=== PATIENT | male | born 1980 | race Caucasian/White ===

== ENCOUNTER 2017-01-23 16:05 | Emergency (ER) | payer OTHER ==
[2017-01-23 16:15] VITALS: BP 124/68; PULSE 61; TEMP 98.1; BMI 20.3
[2017-01-23] MEDS ORDERED: DIPHTH,PERTUSS(ACELL),TET 0.5 ML DISP.SYRIN IM ONE (16:15)
--- NOTE | 2017-01-23 16:15 | PDOC ---
Rapid Medical Evaluation Time Seen by Provider: 01/23/17 16:11 Medical Evaluation: 01/23/17 16:12 I have performed a brief in person evaluation of this patient. The patient presents with chief complaint of : laceration to the right knee at work cut with glass that was sticking out of the garbage bag Pertinent PE findings: right knee with linear laceration vertical across patella no active bleeding approximately 2cm. I have ordered the following: boostrix The patient will proceed to the ER for further evaluation.
--- NOTE | 2017-01-23 18:37 | PDOC ---
History of Present Illness - General Chief Complaint: Laceration Stated Complaint: LACERATION Time Seen by Provider: 01/23/17 16:11 History Source: Patient Exam Limitations: No Limitations - History of Present Illness Initial Comments: 01/23/17 18:28 CHIEF COMPLAINT: Laceration to the Right knee HISTORY OF PRESENT ILLNESS: Patient is a 36 y/o male. No significant medical history. Patient was at work and was carrying a bag of garbage, a piece of glass cut his right knee that was in the bag. Tetanus is not up to date. Timing/Duration: reports: this afternoon Severity: Yes: moderate Location: reports: extremities Past History - Past Medical History Allergies/Adverse Reactions: Allergies Allergy/AdvReac Type Severity Reaction Status Date / Time No Known Allergies Allergy Verified 01/23/17 16:12 Home Medications: Ambulatory Orders Cephalexin Monohydrate [Keflex -] 500 mg PO Q8H #15 capsule 01/23/17 COPD: No Other medical history: DENIES. - Suicide/Smoking/Psychosocial Hx Smoking History: Never smoked Review of Systems - Review of Systems Constitutional: No: Symptoms Reported Respiratory: No: Symptoms reported Cardiac (ROS): No: Symptoms Reported Integumentary: Yes: Other (4 cm laceration to the anterior right knee. ) Neurological: No: Paresthesia, Tingling, Tremors All Other Systems: Reviewed and Negative *Physical Exam - Vital Signs Last Vital Signs Temp Pulse Resp BP Pulse Ox 98.1 F 61 19 124/68 100 01/23/17 16:12 01/23/17 16:12 01/23/17 16:12 01/23/17 16:12 01/23/17 16:12 - Physical Exam General Appearance: Yes: Appropriately Dressed. No: Apparent Distress Neck: negative: Tender lateral, Tender midline Respiratory/Chest: positive: Lungs Clear, Normal Breath Sounds Cardiovascular: positive: Regular Rhythm, Regular Rate Lymphatic: negative: Adenopathy Musculoskeletal: positive: Normal Inspection Extremity: positive: Normal Capillary Refill, Normal Inspection, Normal Range of Motion. negative: Swelling, Erythema, Inflammation Integumentary: positive: Normal Color, Dry, Other (3 cm laceration to the anterior right knee. ). negative: Erythema, Swelling, Ecchymosis, Bruising Neurologic: positive: Alert, Normal Mood/Affect, Normal Response, Motor Strength 5/5 Procedures - Laceration/Wound Repair Right Anterior Knee Wound Length: 2.6 to 5.0 cm Wound Explored: clean Wound's Depth, Shape: linear Irrigated w/ Saline: Yes Betadine Prep: Yes Anesthesia: 1% Lidocaine Amount of Anesthetic (ccs): 3 Wound Repaired With: Sutures Suture Size/Type: 5:0 Number of Sutures: 6 Layer Closure: No Sterile Dressing Applied: Yes Splint Applied: No Medical Decision Making - Medical Decision Making 01/23/17 18:41 A/P : Patient here for evaluation of the right knee laceration. Tetanus was not up-to-date, Boostrix ordered. See repair note. Follow-up instructions given to patient, he verbalized understanding will follow-up as instructed. If any increased redness, swelling, signs of infection return to the ER. *DC/Admit/Observation/Transfer Diagnosis at time of Disposition: Laceration of knee Qualifiers: Encounter type: initial encounter Laterality: right Qualified Code(s): S81.011A - Laceration without foreign body, right knee, initial encounter - Discharge Dispostion Disposition: HOME Condition at time of disposition: Stable Admit: No - Prescriptions Prescriptions: Cephalexin Monohydrate [Keflex -] 500 mg PO Q8H #15 capsule - Referrals Referrals: Duong Bhagat MD [Primary Care Provider] - - Patient Instructions Printed Discharge Instructions: DI for Laceration Repair Additional Instructions: Keep area clean dry and intact Keep dressing on until tomorrow If any increased bleeding through the dressing return immediately to emergency department Please return in 10 days for suture removal. Please return immediately to emergency department with any increased redness, swelling, signs of infection - Post Discharge Activity Forms/Work/School Notes: Back to Work
== END 2017-01-23 19:05 | disposition home or self-care (01) ==
LOC: JERFT 16:05
PROC: 3E0234Z Introduction of Serum, Toxoid and Vaccine into Muscle, Percutaneous Approach (ICD-10-PCS; principal; 2017-01-23)
PROC: 0HQKXZZ Repair Right Lower Leg Skin, External Approach (ICD-10-PCS; 2017-01-23)
DX: S81.011A Laceration without foreign body, right knee, initial encounter (principal); W25.XXXA Contact with sharp glass, initial encounter; Y93.89 Activity, other specified; Y92.9 Unspecified place or not applicable; Y99.0 Civilian activity done for income or pay
CPT/HCPCS: 12002-25; 90715; 99282-25

== ENCOUNTER 2017-02-02 20:41 | Emergency (ER) | payer OTHER ==
[2017-02-02 21:05] VITALS: BP 117/70; PULSE 57; TEMP 98; BMI 21.1
--- NOTE | 2017-02-02 21:06 | PDOC ---
Rapid Medical Evaluation Chief Complaint: Suture/Staple Removal (other) Medical Evaluation: Allergies Allergy/AdvReac Type Severity Reaction Status Date / Time No Known Allergies Allergy Verified 01/23/17 16:12 02/02/17 21:05 I have performed a brief in-person evaluation of this patient. The patient presents with a chief complaint of: suture removal to R knee I have ordered the following: nothing The patient will proceed to the ED for further evaluation.
--- NOTE | 2017-02-02 22:41 | PDOC ---
Suture Removal/Wound Check HPI - History of Present Illness Chief Complaint: Suture/Staple Removal (other) Stated Complaint: SUTURE REMOVAL Time Seen by Provider: 02/02/17 22:02 History Source: Yes: Patient Exam Limitations: Yes: No Limitations Treated at: [facility] ED - Previous ED Treatment Type of procedure performed on last visit: Yes: Laceration Repair Tetanus Immunization: Yes: Given at last ED visit - Onset of Previous Treatment Date of Occurence: 01/23/17 Comment:: 02/02/17 22:39 6 sutures removed without complication. Skin well approximated with no erythema , warmth, or swelling. Past History - Past Medical History Allergies/Adverse Reactions: Allergies Allergy/AdvReac Type Severity Reaction Status Date / Time No Known Allergies Allergy Verified 01/23/17 16:12 Home Medications: Ambulatory Orders NK [No Known Home Medication] 02/02/17 COPD: No - Suicide/Smoking/Psychosocial Hx Smoking History: Never smoked Have you smoked in the past 12 months: No Information on smoking cessation initiated: No Hx Alcohol Use: No Drug/Substance Use Hx: No Substance Use Type: None *DC/Admit/Observation/Transfer Diagnosis at time of Disposition: Visit for suture removal - Discharge Dispostion Disposition: HOME Condition at time of disposition: Stable Admit: No - Referrals Referrals: Maia Sánchez [Primary Care Provider] - - Patient Instructions Printed Discharge Instructions: DI for Suture Removal - Post Discharge Activity
== END 2017-02-02 22:45 | disposition home or self-care (01) ==
LOC: JERFT 20:41
DX: Z48.02 Encounter for removal of sutures (principal)
CPT/HCPCS: 99281-25

== ENCOUNTER 2024-01-24 19:34 | Emergency (ER) | payer OTHER ==
[2024-01-24 19:42] VITALS: BP 131/79; PULSE 60; RESP 20; TEMP 98.1; BMI 22.6
== END 2024-01-24 20:50 | disposition short-term general hospital (02) ==
LOC: JERFT 19:34
DX: S01.21XA Laceration without foreign body of nose, initial encounter (principal); X58.XXXA Exposure to other specified factors, initial encounter
CPT/HCPCS: 99285-25